=== PATIENT | female | born 1950 | race Caucasian/White ===

== ENCOUNTER → 2020-01-25 14:44 | Outpatient (CLI) | payer MEDICARE, BC, MEDICAID, SELFPAY ==
--- NOTE | 2020-01-25 14:50 | ECHOCS_ITS ---
Reason For Study: S/P TAVR Procedure This was a 2D Doppler, Color Flow transthoracic echocardiogram. The study was technically difficult. Contrast injection was performed. Exam performed in department. Left Ventricle Normal LV size. Left ventricular systolic function is normal. The estimated ejection fraction is 70 %. There is evidence of diastolic dysfunction. No regional wall motion abnormalities noted. Right Ventricle Normal RV size. Normal systolic function. Atria The left atrium is mildly enlarged. Normal right atrium. No doppler evidence for ASD. Mitral Valve There is moderate mitral annular calcification. Extension of the mitral annular calcification onto the base of the posterior mitral valve leaflet. The mitral papillary muscle appears thickened and/or calcified. Mild mitral valve stenosis. Trivial mitral valve insufficiency. Tricuspid Valve Normal tricuspid valve. Trivial tricuspid valve insufficiency. Right ventricular systolic pressure estimated to be 33 mmHg. Aortic Valve Mild aortic stenosis. Stable appearing bioprosthetic aortic valve apparatus. Trivial perivalvular insufficiency of the aortic valve. Pulmonic Valve The pulmonic valve is not well visualized. Trivial pulmonic valve insufficiency. Great Vessels Normal sized aortic root. Pericardium/Pleural No pericardial effusion. Medication 22 gauge I.V. with prn adaptor inserted into right arm. Diluted definity 3.0ml given slow IV push to enhance endocardial definition. MMode/2D Measurements & Calculations LVIDd: 3.7 cm IVSd: 1.3 cm LVOT diam: 2.0 cm LVIDs: 2.2 cm LVPWd: 1.1 cm RVDd: 4.0 cm FS: 41.0 % LVOT area: 3.1 cm2 Ao root diam: 3.1 cm LAV(MOD-bp): 71.3 ml LA A4 area: 22.2 cm2 LAV(MOD-bp) Indexed: 38.6 ml/m2 LAV(MOD-sp2): 76.1 ml LAV(MOD-sp4): 65.1 ml RA A4 area: 15.6 cm2 Doppler Measurements & Calculations MV E max jostin: 116.5 cm/sec Lat Peak E' Jostin: 6.2 cm/sec Med Peak E' Jostin: 4.8 cm/sec MV A max jostin: 123.3 cm/sec E/E' lat: 18.8 E/E' med: 24.4 MV E/A: 0.95 MV V2 max: 120.4 cm/sec Ao V2 max: 246.2 cm/sec LV V1 max: 120.6 cm/sec MV max P.8 mmHg Ao max P.3 mmHg LV V1 max P.8 mmHg MV V2 mean: 70.6 cm/sec Ao V2 mean: 149.8 cm/sec LV V1 mean P.2 mmHg MV mean P.3 mmHg Ao mean P.2 mmHg LV V1 mean: 84.8 cm/sec MV V2 VTI: 44.2 cm Ao V2 VTI: 51.3 cm LV V1 VTI: 27.4 cm MVA(VTI): 1.9 cm2 MICK(I,D): 1.6 cm2 MICK(V,D): 1.5 cm2 SV(LVOT): 83.9 ml PA V2 max: 131.8 cm/sec TR max jostin: 274.5 cm/sec TR max P.1 mmHg MV P1/2t-pr_phl: 90.6 msec Interpretation Summary The study was technically difficult. Contrast injection was performed. Left ventricular systolic function is normal. The estimated ejection fraction is 70 %. The left atrium is mildly enlarged. There is moderate mitral annular calcification. Extension of the mitral annular calcification onto the base of the posterior mitral valve leaflet. The mitral papillary muscle appears thickened and/or calcified. Mild mitral valve stenosis. Trivial mitral valve insufficiency. Trivial tricuspid valve insufficiency. Stable appearing bioprosthetic aortic valve apparatus. Mild aortic stenosis. Trivial perivalvular insufficiency of the aortic valve. Trivial pulmonic valve insufficiency. Right ventricular systolic pressure estimated to be 33 mmHg. There is evidence of diastolic dysfunction. Ordering Physician: BRINDA SIMPSON Referring Physician: ILYA ERWIN Performed By: Margarita Biswas, JUDITH, RVT
== END ==
PROVIDERS: PCP Family Medicine
DX: Z95.2 Presence of prosthetic heart valve (principal)
CPT/HCPCS: 93306; Q9957; A4216; C8929

== ENCOUNTER → 2020-02-03 07:11 | Outpatient (CLI) | payer MEDICARE, BC, MEDICAID, SELFPAY ==
--- NOTE | 2020-02-03 07:15 | CT_ITS ---
STUDY: CT CHEST WITHOUT CONTRAST REASON FOR EXAM: Female, 69 years old. LUNG NODULES, COPD, DB, END STAGE RENAL DZ-DIALYSIS RADIATION DOSAGE (If Supplied By Facility): CTDIvol = ( 15.19 ) mGy, DLP = ( 493.49 ) mGycm TECHNIQUE: Transaxial imaging was performed without the administration of intravenous contrast material. Multiplanar coronal and sagittal images were reformatted. Individualized dose optimization techniques were used for this CT. COMPARISON: None. FINDINGS: There is an 8.8 mm hypodense nodule in the inferior pole of the left lobe of the thyroid. This most likely represents a colloid cyst. Calcified nodules in the lateral aspect of the right breast. Mild degree of emphysematous changes. Linear density in the anterior aspect of the left lower lobe abutting the left major fissure with bronchiectasis suggestive of scarring. There is no demonstrated pleural abnormality. There are calcifications of the coronary arteries. Minimal anterior pericardial thickening. There are multiple small lymph nodes within the mediastinum, which are normal in size and morphology most compatible with reactive lymph hyperplasia. Calcified right mediastinal lymph nodes. Normal hilar regions. Normal unenhanced pulmonary arteries. There is atherosclerotic calcification of the aortic arch . There is evidence of a covered stent at the origin of the ascending thoracic aorta. There are multi-level degenerative changes of the thoracic spine. Soft tissue density within the gallbladder. Correlation with ultrasound of the gallbladder is recommended. CT/Chest without Contrast IMPRESSION: Findings suggestive of scarring in the anterior aspect of the left lower lobe with bronchiectasis. Calcified mediastinal lymph nodes. Minimal pericardial thickening. Covered stent is seen in the ascending thoracic aorta. Soft tissue density seen within the gallbladder lumen. Correlation with ultrasound is recommended. Electronically Signed: Ayo Oliver, at 14:21 EDT , Service support ,
== END ==
PROVIDERS: PCP Family Medicine; Referring Provider Family Medicine; Visit Provider Family Medicine
DX: R91.1 Solitary pulmonary nodule (principal)
CPT/HCPCS: 71250

== ENCOUNTER → 2020-02-08 10:42 | Outpatient (CLI) | payer MEDICARE, MEDICAID, SELFPAY ==
--- NOTE | 2020-02-08 10:44 | VDUE_ITS ---
Reason For Study: ESRD Right Arm Left Arm Right cephalic vein is compressible. Left cephalic vein is compressible. Right Cephalic Vein at the shoulder Left Cephalic Vein at the shoulder measures .47 x .47 cm. measures .38 x .4 cm. Right Cephalic Vein mid bicep measures .52 Left Cephalic Vein at mid bicep measures .46 x .51 cm. x .45 cm. Right Cephalic Vein above antecub Left Cephalic Vein above antecub measures .51 measures .47 x .49 cm. x .52 cm. Right Cephalic Vein below antecub Left Cephalic Vein below antecub measures .32 measures .24 x .26 cm. x .31 cm. Right Cephalic Vein in the forearm Left Cephalic Vein in the forearm measures .31 x .31 cm. measures .31 x .31 cm. Right Cephalic Vein at the wrist measures .32 Left Cephalic Vein at the wrist measures .3 x .31 cm. x .29 cm. Right basilic vein is compressible. Left basilic vein is compressible. Right Basilic Vein mid bicep measures .29 Basilic vein below antecub measures .15 x .15 x .3 cm. cm. Right Basilic Vein above antecub measures .33 Basilic vein in the forearm measures .17 x .34 cm. x .18 cm. Right Basilic Vein below antecub measures .31 Basilic vein at the wrist measures .18 x .16 x .3 cm. cm. Right Basilic Vein in the forearm Pt has graft in left upper arm. measures .29 x .32 cm. Brachial art .43 x .42 cm. Right Basilic Vein at the wrist measures .21 Brachial art 164.7 cm/s. x .22 cm. Radial art .19 x .22 cm. Brachial art .43 x .45 cm. Radial art 151.7 cm/s. Brachial art 68.6 cm/s. Radial art .19 x .22 cm. Radial art 134.4 cm/s. Interpretation Summary Patent and compressible bilateral upper extremity cephalic and basilic veins as noted. Bilateral radial and brachial arteries appear patent and of adequate caliber. Ordering Physician: Genesis Davies Performed By: Juan Sears RVT ?
== END ==
PROVIDERS: PCP Family Medicine; Referring Provider Internal Medicine Nephrology; Visit Provider Internal Medicine Nephrology
DX: N18.6 End stage renal disease (principal); Z01.818 Encounter for other preprocedural examination
CPT/HCPCS: 93970; 93990

== ENCOUNTER 2020-10-04 19:16 | Emergency (ER) | payer MEDICARE, MEDICAID, SELFPAY ==
[2020-09-07 14:08] VITALS: BMI 36.1
[2020-10-04 19:16] VITALS: BP 168/65; PULSE 74; RESP 16; TEMP 37.3; O2SAT 93; BMI 36.6
[2020-10-04] MEDS: oxyCODONE 5 MG Tablet PO ×2 (19:23→21:33)
--- NOTE | 2020-10-04 19:23 | US_ITS ---
STUDY: VENOUS DOPPLER ULTRASOUND - LEFT LOWER EXTREMITY REASON FOR EXAM: Female, 69 years old. LT LEG PAIN SINCE 10 AM TECHNIQUE: Ultrasound evaluation of the deep vein system to include herrera-scale imaging and compression was performed. Herrera-scale imaging and Doppler sonographic evaluation, including duplex spectral analysis and qualitative color flow sonography, was performed. COMPARISON: None. FINDINGS: Common Femoral Vein: Normal compression, spontaneity and augmentation. Normal color Doppler. Common Femoral Vein/Greater Saphenous Junction: Normal compression. No abnormal internal echoes. Deep Femoral Vein: Not assessed. Femoral Proximal: Normal compression. No abnormal internal echoes. Femoral Middle: Normal compression, spontaneity and augmentation. Normal color Doppler. Femoral Distal: Normal compression. No abnormal internal echoes. Popliteal Vein: Normal compression, spontaneity and augmentation. Normal color Doppler. Posterior Tibial Vein: Normal compression. No abnormal internal echoes. Peroneal Vein: Normal compression. No abnormal internal echoes. There is no demonstrated deep venous thrombosis. US/Venous Duplex Imag/Limited/Uni IMPRESSION: Normal venous Doppler ultrasound of the lower extremity. Electronically Signed: Pito Park MD at 20:08 EDT Tel , Service support ,
--- NOTE | 2020-10-04 19:23 | ED.VIS.LOWEX ---
HPI History of Present Illness Chief Complaint: Lower Extremity Injury Informant: patient Narrative Narrative: Patient presents with left lower extremity pain. Started around 10 AM this morning, about 9 hours ago. She describes pains in the front and back part of her lower leg from her knee to her ankle. She denies any falls or trauma. She tried Tylenol with some relief. She is on dialysis and received her full treatment today. She denies any history of DVT in the past. [facility] Medical History Atherosclerotic heart disease of [place] coronary artery without angina pectoris COPD (chronic obstructive pulmonary disease) ESRD (end stage renal disease) on dialysis First degree AV block Non-rheumatic mitral valve stenosis GIACOMO (obstructive sleep apnea) Paroxysmal atrial fibrillation Presence of stent in coronary artery Pulmonary hypertension Type 2 diabetes mellitus Home Medications acetaminophen 325 mg tablet 650 mg PO Q4H PRN tab 09/06/20 [History Last Taken Unknown] aspirin 81 mg tablet,delayed release 81 mg PO DAILY 09/06/20 [History Last Taken Unknown] atorvastatin 40 mg tablet 40 mg PO DAILY #1 tab 09/06/20 [Rx Last Taken Unknown] carvedilol 12.5 mg tablet 12.5 mg PO .COMPLEX #1 tab 09/06/20 [Rx Last Taken Unknown] citalopram 20 mg tablet 30 mg PO DAILY tab 09/06/20 [History Last Taken Unknown] ergocalciferol (vitamin D2) 1,250 mcg (50,000 unit) capsule 1,250 mcg PO QWEEK #1 cap 09/06/20 [Rx Last Taken Unknown] insulin NPH-regular 70-30 U-100 insulin 100 unit/mL subcutaneous pen See Rx Instructions SUBCUT DAILY 09/06/20 [History Last Taken Unknown] loperamide 2 mg tablet 2 mg PO Q6H PRN 09/06/20 [History Last Taken Unknown] sevelamer carbonate 800 mg tablet 3,200 mg PO TID tab 09/06/20 [History Last Taken Unknown] trazodone 50 mg tablet 50 mg PO QHS PRN 09/06/20 [History Last Taken Unknown] vitamin B complex and vitamin C no.20-folic acid 1 mg capsule 1 cap PO DAILY 09/06/20 [History Last Taken Unknown] lisinopril 40 mg tablet 20 mg PO .COMPLEX tab 09/07/20 [History Last Taken Unknown] Allergy/AdvReac Type Severity Reaction Status Date / Time No Known Allergies Allergy Verified 10/04/20 19:21 Family History Grandfather Myocardial infarction Grandmother Myocardial infarction Grandmother Congestive heart failure Surgical History History of transcatheter aortic valve replacement (TAVR) (~12/25/18) Presence of coronary angioplasty implant and graft (~11/17/18) Social History Smoking Status: Never smoker alcohol intake: never substance use type: does not use caffeine: No ROS ROS ED Constitutional Constitutional ED: Denies chills or fever(s) Eyes Eyes: Denies blurry vision, change in vision or diplopia ENT ENT ED: Denies ear pain, rhinorrhea or sore throat Cardiovascular Cardiovascular: Denies chest pain or palpitations Respiratory/Chest Respiratory/Chest: Denies cough, dyspnea or sputum Gastrointestinal Gastrointestinal: Denies abdominal pain, diarrhea, nausea or vomiting Genitourinary Genitourinary ED: Denies dysuria, hematuria or urinary frequency Musculoskeletal Musculoskeletal: Reports other Details: Left leg pain Integumentary Denies change in pigmentation or rash Neurologic Neurologic: Denies headache(s), numbness or weakness Psychiatric Psychiatric: Denies anxiety or depression Endocrine Endocrinology: Denies polydipsia or polyuria EXAM Physical Exam Const Vital Signs: 10/04/20 19:16 Temperature 99.1 F Temperature Source Oral Pulse Rate 74 Respiratory Rate 16 Blood Pressure 168/65 H Blood Pressure Mean 99 Pulse Ox 93 Oxygen Delivery Method Room Air Positive well nourished and well developed General Appearance ED: well developed HEENT normocephalic and atraumatic Eyes PERRL Neck full ROM and supple Extremity Extremity Narrative: Patient has tenderness of the left calf and left anterior lower leg minimally. There is no swelling. Her peripheral pulses are equal in both legs. There is no erythema. There is no knee or ankle joint discomfort. Neuro oriented x3 and CN's II-XII intact bilaterally Sensorium / Orientation: alert Motor Exam: strength 5/5 throughout Psych mental status grossly normal Skin Lesions: no lesions Rashes: no rashes MDM MDM MDM Narrative Medical decision making narrative: The patient had an ultrasound of the left lower extremity which reveals no DVT. She was given oxycodone for pain control. She has had no trauma. She has no specifically bony tenderness. Do not feel x-ray would show us anything additional. Patient will continue to take Tylenol and oxycodone at her skilled nursing. If the symptoms persist she may need repeat testing. Discharge Plan Triage Chief Complaint: Lower Extremity Injury ED Provider: Eliot Stevens Dx/Rx/DC Orders Clinical Impression: Lower extremity pain, left Instructions: ED Pain, Acute, Uncertain Cause Prescriptions: No Action lisinopril 40 mg tablet 20 mg PO .COMPLEX RF: 0 aspirin [Adult Low Dose Aspirin] 81 mg tablet,delayed release (DR/EC) 81 mg PO DAILY RF: 0 atorvastatin 40 mg tablet 40 mg PO DAILY Qty: 1 RF: 0 carvedilol 12.5 mg tablet 12.5 mg PO .COMPLEX Qty: 1 RF: 0 citalopram 20 mg tablet 30 mg PO DAILY RF: 0 ergocalciferol (vitamin D2) 1,250 mcg (50,000 unit) capsule 1,250 mcg PO QWEEK Qty: 1 RF: 0 Humulin 70/30 U-100 KwikPen 100 unit/mL (70-30) insulin pen See Rx Instructions subcut DAILY RF: 0 loperamide [Imodium A-D] 2 mg tablet 2 mg PO Q6H PRN (Reason: Diarrhea) RF: 0 sevelamer carbonate [Renvela] 800 mg tablet 3,200 mg PO TID RF: 0 trazodone 50 mg tablet 50 mg PO QHS PRN (Reason: Sleep) RF: 0 Triphrocaps 1 mg capsule 1 cap PO DAILY RF: 0 acetaminophen [Tylenol] 325 mg tablet 650 mg PO Q4H PRN (Reason: Pain) RF: 0 Primary Care Provider: Ilya Padilla Referrals: Ilya Padilla MD [Primary Care Provider] - Disposition Disposition: Home, self care
== END 2020-10-04 21:37 | disposition home or self-care (01) ==
LOC: ED 20:09
PROVIDERS: Emergency Provider Emergency Medicine; PCP Family Medicine
DX: M79.605 Pain in left leg (principal); I25.10 Atherosclerotic heart disease of native coronary artery without angina pectoris; E11.22 Type 2 diabetes mellitus with diabetic chronic kidney disease; N18.6 End stage renal disease; I48.0 Paroxysmal atrial fibrillation; Z79.4 Long term (current) use of insulin; Z79.82 Long term (current) use of aspirin; Z99.2 Dependence on renal dialysis; Z79.899 Other long term (current) drug therapy
CPT/HCPCS: 93971; 99284

== ENCOUNTER 2020-10-06 14:30 | Emergency (ER) | payer MEDICARE, BC, MEDICAID, SELFPAY ==
[2020-10-06 14:32] VITALS: BP 121/35; PULSE 67; RESP 18; TEMP 36.8; O2SAT 89; BMI 35.8
--- NOTE | 2020-10-06 14:54 | RAD_ITS ---
STUDY: X-RAY CHEST REASON FOR EXAM: Female, 69 years old. Preop TECHNIQUE: Single AP portable view of the chest. COMPARISON: None. FINDINGS: EKG electrodes are seen. The vascular stent is seen in the left mid upper extremity. The lungs are clear and expanded. There is no demonstrated pleural abnormality. There is moderate cardiac enlargement. Normal mediastinum and anastasia. Normal visualized pulmonary arteries. There is atherosclerotic calcification of the aortic arch with tortuosity. There are diffuse degenerative changes of the visualized thoracic spine. Normal visualized ribs, clavicles, and shoulders. There is no demonstrated abnormality of the visualized soft tissue structures of the upper abdomen. RAD/Chest 1 View (Portable) IMPRESSION: Cardiomegaly. Electronically Signed: Ayo Oliver MD at 15:41 EDT , Service support ,
--- NOTE | 2020-10-06 14:55 | EKG12_ITS ---
Test Reason : TRANSFER Blood Pressure : / mmHG Vent. Rate : 074 BPM Atrial Rate : 074 BPM P-R Int : 250 ms QRS Dur : 134 ms QT Int : 470 ms P-R-T Axes : 025 228 011 degrees QTc Int : 521 ms Sinus rhythm with 1st degree A-V block with occasional Premature ventricular complexes Right bundle branch block Abnormal ECG Confirmed by VINAYAK BURGER, ALMA ([id number]), editorial director REY MCLAUGHLIN ([id number]) on 10/09/2020 11:14:16 A M Referred By: IWONA Confirmed By:RITA LICEA MD
--- NOTE | 2020-10-06 14:57 | EDS_ITS ---
HPI History of Present Illness Chief Complaint: Abn Labs Informant: patient Onset/Context/Timing Onset: Days (24 to 36 hours ago) Context: Sudden Onset Timing: Continuous Quality: Tingling in the toes and left foot and pain left foot Location: Toes and foot, left Current Severity: Mild Maximum Severity: Moderate Worsened by: Walking Relieved by: Nothing Associated Symptoms Associated Symptoms: Decreased sensation, cold left foot, and pain with ambulation Narrative Narrative: Patient was seen 2 days ago and had documented blood flow. Venous duplex was negative. Patient symptoms started apparently after she was seen. She denies history of atrial fibrillation. Review of prior records indicates she has history of paroxysmal atrial fibrillation. She was at dialysis and dialysis was discontinued after 1.5 hours because they received a call that arterial study revealed no flow distal to the popliteal. Patient denies fever, chills night sweats. She denies headache, visual, ocular auditory symptoms. Patient denies chest pain or shortness of breath. She denies abdominal pain, nausea, vomiting or diarrhea. Prior similar symptoms: No Recent Illness/Hospitalization: Yes [facility] Medical History Atherosclerotic heart disease of [place] coronary artery without angina pectoris COPD (chronic obstructive pulmonary disease) ESRD (end stage renal disease) on dialysis First degree AV block Non-rheumatic mitral valve stenosis GIACOMO (obstructive sleep apnea) Paroxysmal atrial fibrillation Presence of stent in coronary artery Pulmonary hypertension Type 2 diabetes mellitus Home Medications acetaminophen 325 mg tablet 650 mg PO Q4H PRN tab 09/06/20 [History Last Taken Unknown] aspirin 81 mg tablet,delayed release 81 mg PO DAILY 09/06/20 [History Last Taken Unknown] atorvastatin 40 mg tablet 40 mg PO DAILY #1 tab 09/06/20 [Rx Last Taken Unknown] carvedilol 12.5 mg tablet 12.5 mg PO .COMPLEX #1 tab 09/06/20 [Rx Last Taken Unknown] citalopram 20 mg tablet 30 mg PO DAILY tab 09/06/20 [History Last Taken Unknown] ergocalciferol (vitamin D2) 1,250 mcg (50,000 unit) capsule 1,250 mcg PO QWEEK #1 cap 09/06/20 [Rx Last Taken Unknown] insulin NPH-regular 70-30 U-100 insulin 100 unit/mL subcutaneous pen See Rx Instructions SUBCUT DAILY 09/06/20 [History Last Taken Unknown] loperamide 2 mg tablet 2 mg PO Q6H PRN 09/06/20 [History Last Taken Unknown] sevelamer carbonate 800 mg tablet 3,200 mg PO TID tab 09/06/20 [History Last Taken Unknown] trazodone 50 mg tablet 50 mg PO QHS PRN 09/06/20 [History Last Taken Unknown] vitamin B complex and vitamin C no.20-folic acid 1 mg capsule 1 cap PO DAILY 09/06/20 [History Last Taken Unknown] lisinopril 40 mg tablet 20 mg PO .COMPLEX tab 09/07/20 [History Last Taken Unknown] Allergy/AdvReac Type Severity Reaction Status Date / Time No Known Allergies Allergy Verified 10/06/20 14:34 Family History Grandfather Myocardial infarction Grandmother Myocardial infarction Grandmother Congestive heart failure Surgical History History of transcatheter aortic valve replacement (TAVR) (~12/25/18) Presence of coronary angioplasty implant and graft (~11/17/18) Social History (Updated 10/06/20 @ 15:[address] Keon Ovalles MD) household members: none Smoking Status: Never smoker alcohol intake: never substance use type: does not use caffeine: No ROS ROS ED Constitutional Constitutional ED: Denies chills, fever(s), subjective or sweats Eyes Eyes: Denies blurry vision, change in vision or diplopia ENT ENT ED: Denies ear pain, rhinorrhea or sore throat Cardiovascular Cardiovascular: Denies chest pain, palpitations or racing heartbeat Respiratory/Chest Respiratory/Chest: Denies cough, dyspnea or dyspnea on exertion Gastrointestinal Gastrointestinal: Denies abdominal pain, diarrhea, nausea or vomiting Musculoskeletal Musculoskeletal: Reports other Details: Left foot pain and tingling ; Denies arthralgias, back pain, myalgias or neck pain Integumentary Denies rash Neurologic Neurologic: Reports paresthesias; Denies headache(s) or weakness Allergic/Immunologic Allergic/Immunologic ED: Denies mouth swelling, tongue swelling or urticaria EXAM Physical Exam Const Vital Signs: 10/06/20 14:32 10/06/20 15:02 10/06/20 15:13 Temperature 98.3 F Temperature Source Temporal Pulse Rate 67 69 Respiratory Rate 18 16 Respiratory Effort Normal Non-Labored Respiratory Pattern Normal Blood Pressure 121/35 H 174/60 H Blood Pressure Mean 63 98 Pulse Ox 89 94 Oxygen Delivery Method Room Air Room Air Positive well nourished and well developed General Appearance ED: well developed and NAD HEENT Negative for trauma or tenderness Eyes PERRL and EOMs intact bilaterally General Eye ED: Yes pale conjunctiva; Negative for scleral icterus Neck no lymphadenopathy and supple Resp normal respiratory effort and clear to auscultation bilaterally Cardio regular rate, regular rhythm, S1 normal heart sound, S2 normal heart sound and no murmurs GI normal to inspection, nondistended, normoactive bowel sounds and non-tender Palpation: soft Back/Spine no CVA tenderness Cervical Spine: Negative for cervical spine tenderness Thoracic Spine / Upper Back: Negative for thoracic spinal tenderness or paraspinal muscle tenderness Extremity Extremity Narrative: Patient has a cold pale left foot. There is no palpable femoral, popliteal, DP or PT pulse. There is biphasic flow at the femoral and popliteal. There is no flow at the DP or PT. Neuro oriented x3 and CN's II-XII intact bilaterally Sensorium / Orientation: alert Sensory Exam: sensory level loss detected Motor Exam: Negative for strength 5/5 throughout Psych mental status grossly normal Skin no rashes or lesions noted and no wounds MDM MDM MDM Narrative Medical decision making narrative: Patient presents because of abnormal labs. When asked she states she had a Doppler 2 days ago which was reportedly negative. Patient reports numbness tingling of her toes and dorsal surface of her left foot that started approximately 24 to 36 hours ago. She reports increased pain with walking. The pain in the foot started 24 hours ago. Patient has decreased movement of her toes. There is altered sensation. And there is pallor to all the toes. There appears to be pallor distal portion of the left foot as well. Appropriate labs were obtained. Patient will be anticoagulated. Patient's daughter is a nurse and requested [facility]. Spoke with the nurse at [facility]/transfer line. She will discuss case with vascular surgeon. Otherwise will ask patient and daughter what their second choice would be. Covid test was ordered. Patient was made NPO. Lab Data Attestation: I reviewed the patient's lab results. Labs: Laboratory Results - last 24 hr 10/06/20 10/06/20 15:05 15:05 WBC 10.1 RBC 3.41 L Hgb 10.2 L Hct 32.9 L MCV 96.5 MCH 29.9 MCHC 31.0 L RDW Std Deviation 53.7 H RDW Coeff of Joan 15.1 H Plt Count 262 MPV 11.3 Immature Gran % (Auto) 0.500 Neut % (Auto) 79.3 H Lymph % (Auto) 14.6 L [place] % (Auto) 4.3 Eos % (Auto) 1.1 Baso % (Auto) 0.2 Absolute Neuts (auto) 8.0 H Absolute Lymphs (auto) 1.47 Nucleated RBC % 0 Sodium 138 Potassium 3.5 Chloride 95 L Carbon Dioxide 35.0 H Anion Gap 8 BUN 45 H Creatinine 5.99 H Estim Creat Clear Calc 6.81 Est GFR (MDRD) Af Amer 9 L Est GFR (MDRD) Non-Af 7 L BUN/Creatinine Ratio 7.5 L Glucose 141 H Calcium 9.6 CBC reveals mild anemia with normal MCV. Electrolyte panel is remarkable for creatinine of 5.99 and BUN of 45. No other labs available for review at the time of transfer Radiography Chest X-Ray - ED: 1 View, Read by ED Physician, Lungs, Mediastinum, Bony Structures, No Acute Disease, Chronic Changes, Cardiomegaly and - (Single view portable x-ray of the chest was interpreted by me at 1542.) Diagnostic Testing: Radiology Impression Chest X-Ray 10/06/20 14:54 IMPRESSION: Cardiomegaly. Electronically Signed: Ayo Oliver MD at 15:41 EDT , Service support , EKG Initial EKG: Attestation: I personally reviewed and interpreted this EKG as follows: Interpretation: Sinus Rhythm Comments: Ventricular rate is 74. There is evidence of first-degree AV block with a CO interval of 250 ms. There is evidence of premature ventricular complexes. QRS duration is prolonged at 134 ms and consistent with a right bundle branch block. QT intervals 470 ms. [place] to the right. Critical Care Time Critical Care Time: Yes Critical care time (excluding procedures): 30-74 minutes (37 minutes), Including time spent: (History, physical, bedside care, initiation of therapy,), Discussing w/Patient &/or Family/[employer]ing [employer], Discussing w/Consultants and Arranging Admission or Transfer Discharge Plan Triage Chief Complaint: Abn Labs ED Provider: Keon Ovalles Dx/Rx/DC Orders Clinical Impression: Pain of left lower extremity due to ischemia Prescriptions: No Action lisinopril 40 mg tablet 20 mg PO .COMPLEX RF: 0 aspirin [Adult Low Dose Aspirin] 81 mg tablet,delayed release (DR/EC) 81 mg PO DAILY RF: 0 atorvastatin 40 mg tablet 40 mg PO DAILY Qty: 1 RF: 0 carvedilol 12.5 mg tablet 12.5 mg PO .COMPLEX Qty: 1 RF: 0 citalopram 20 mg tablet 30 mg PO DAILY RF: 0 ergocalciferol (vitamin D2) 1,250 mcg (50,000 unit) capsule 1,250 mcg PO QWEEK Qty: 1 RF: 0 Humulin 70/30 U-100 KwikPen 100 unit/mL (70-30) insulin pen See Rx Instructions subcut DAILY RF: 0 loperamide [Imodium A-D] 2 mg tablet 2 mg PO Q6H PRN (Reason: Diarrhea) RF: 0 sevelamer carbonate [Renvela] 800 mg tablet 3,200 mg PO TID RF: 0 trazodone 50 mg tablet 50 mg PO QHS PRN (Reason: Sleep) RF: 0 Triphrocaps 1 mg capsule 1 cap PO DAILY RF: 0 acetaminophen [Tylenol] 325 mg tablet 650 mg PO Q4H PRN (Reason: Pain) RF: 0 Primary Care Provider: Ilya Padilla Referrals: Ilya Padilla MD [Primary Care Provider] - Disposition Disposition: Acute Care Hospital Discharge Location: [facility]
[2020-10-06 15:13] VITALS: BP 174/60; PULSE 69; RESP 16; O2SAT 94
--- NOTE | 2020-10-06 15:16 | NURSING ---
[facility] GEN OR ISCHEMIC LEG
[2020-10-06] MEDS: HEPARIN/D5w 25,000 UNITS 25,000 UNITS/250 ML IV.SOLN. 12 UNITS IV (15:20)
[2020-10-06] MEDS: Heparin Injection (Vial) 5,000 UNIT/ML VIAL 6000 UNIT IV (15:20)
--- NOTE | 2020-10-06 15:22 | NURSING ---
ETA IS 90 TO 120
--- NOTE | 2020-10-06 15:24 | ED.RN ---
[facility] CONTACTED
[2020-10-06 15:37] LABS: Anion Gap 8 (5-15); BUN 45 mg/dL (7-18); BUN/Creat Ratio 7.5 RATIO (10-20); Calcium,Total 9.6 mg/dL (8.5-10.1); Chloride 95 mmol/L (98-107); Creatinine, Serum 5.99 mg/dL (0.55-1.02); EST Glomerular Filtration Rate 7 mL/min (>60); Est Glom Filt Rate - Afr Amer 9 mL/min (>60); Estimated Creatinine Clearance 6.81 ml/min; Glucose 141 mg/dL (74-106); Potassium 3.5 mmol/L (3.5-5.1); Sodium Level 138 mmol/L (136-145)
[2020-10-06 15:41] LABS: Absolute Lymphocyte Count 1.47 X10^3/uL (0.83-4.51); Basophil# 0.02 X10^3/uL; Basophil% 0.2 % (0-1); Eosinophil# 0.11 X10^3/uL; Eosinophils% 1.1 % (0-5); Hematocrit 32.9 % (37-47); Hemoglobin 10.2 g/dL (12.0-15.0); Lymphocyte # 1.47 X10^3/ul (0.83-4.51); Lymphocyte % 14.6 % (19-41); Mean Corpuscular Hgb 29.9 pg (27.0-32.0); Mean Corpuscular Volume 96.5 fL (81-99); Mean Platelet Vol. 11.3 fl (6.2-12.0); Monocyte# 0.43 X10^3/uL; Monocyte% 4.3 % (0-10); NRBC Flagged by Analyzer 0 % (0-5); Neutrophil # 8.01 X10^3/uL (2.7-7.7); Neutrophil % 79.3 % (47-70); Platelet Count 262 K/mm3 (150-450); RBC Distribution Width CV 15.1 % (11.6-14.6); RBC Distribution Width SD 53.7 fl (35.1-43.9); Red Blood Count 3.41 M/mm3 (4.2-5.4); White Blood Count 10.1 K/mm3 (4.4-11.0)
[2020-10-06 15:50] VITALS: BP 166/66; PULSE 78; RESP 18; O2SAT 94
[2020-10-06 15:56] LABS: Partial Thromboplast Time 46.2 Seconds (24.1-36.2)
--- NOTE | 2020-10-06 15:58 | ED.RN ---
Diego Sykes called and updated on patients condition, transfer to [facility] ED and time of departure from [facility].
--- NOTE | 2020-10-06 16:00 | EX.ED.DYSGE1 ---
HPI History of Present Illness Chief Complaint: Abn Labs [facility] Medical History Atherosclerotic heart disease of [place] coronary artery without angina pectoris COPD (chronic obstructive pulmonary disease) ESRD (end stage renal disease) on dialysis First degree AV block Non-rheumatic mitral valve stenosis GIACOMO (obstructive sleep apnea) Paroxysmal atrial fibrillation Presence of stent in coronary artery Pulmonary hypertension Type 2 diabetes mellitus Home Medications acetaminophen 325 mg tablet 650 mg PO Q4H PRN tab 09/06/20 [History Last Taken Unknown] aspirin 81 mg tablet,delayed release 81 mg PO DAILY 09/06/20 [History Last Taken Unknown] atorvastatin 40 mg tablet 40 mg PO DAILY #1 tab 09/06/20 [Rx Last Taken Unknown] carvedilol 12.5 mg tablet 12.5 mg PO .COMPLEX #1 tab 09/06/20 [Rx Last Taken Unknown] citalopram 20 mg tablet 30 mg PO DAILY tab 09/06/20 [History Last Taken Unknown] ergocalciferol (vitamin D2) 1,250 mcg (50,000 unit) capsule 1,250 mcg PO QWEEK #1 cap 09/06/20 [Rx Last Taken Unknown] insulin NPH-regular 70-30 U-100 insulin 100 unit/mL subcutaneous pen See Rx Instructions SUBCUT DAILY 09/06/20 [History Last Taken Unknown] loperamide 2 mg tablet 2 mg PO Q6H PRN 09/06/20 [History Last Taken Unknown] sevelamer carbonate 800 mg tablet 3,200 mg PO TID tab 09/06/20 [History Last Taken Unknown] trazodone 50 mg tablet 50 mg PO QHS PRN 09/06/20 [History Last Taken Unknown] vitamin B complex and vitamin C no.20-folic acid 1 mg capsule 1 cap PO DAILY 09/06/20 [History Last Taken Unknown] lisinopril 40 mg tablet 20 mg PO .COMPLEX tab 09/07/20 [History Last Taken Unknown] Allergy/AdvReac Type Severity Reaction Status Date / Time No Known Allergies Allergy Verified 10/06/20 14:34 Family History Grandfather Myocardial infarction Grandmother Myocardial infarction Grandmother Congestive heart failure Surgical History History of transcatheter aortic valve replacement (TAVR) (~12/25/18) Presence of coronary angioplasty implant and graft (~11/17/18) Social History (Updated 10/06/20 @ 15:[address] Keon Ovalles MD) household members: none Smoking Status: Never smoker alcohol intake: never substance use type: does not use caffeine: No EXAM Physical Exam Const Vital Signs: 10/06/20 14:32 10/06/20 15:02 10/06/20 15:13 Temperature 98.3 F Temperature Source Temporal Pulse Rate 67 69 Respiratory Rate 18 16 Respiratory Effort Normal Non-Labored Respiratory Pattern Normal Blood Pressure 121/35 H 174/60 H Blood Pressure Mean 63 98 Pulse Ox 89 94 Oxygen Delivery Method Room Air Room Air 10/06/20 15:50 Temperature Temperature Source Pulse Rate 78 Respiratory Rate 18 Respiratory Effort Respiratory Pattern Blood Pressure 166/66 H Blood Pressure Mean 99 Pulse Ox 94 Oxygen Delivery Method MDM MDM Lab Data Labs: Laboratory Results - last 24 hr 10/06/20 10/06/20 10/06/20 15:05 15:05 15:05 WBC 10.1 RBC 3.41 L Hgb 10.2 L Hct 32.9 L MCV 96.5 MCH 29.9 MCHC 31.0 L RDW Std Deviation 53.7 H RDW Coeff of Joan 15.1 H Plt Count 262 MPV 11.3 Immature Gran % (Auto) 0.500 Neut % (Auto) 79.3 H Lymph % (Auto) 14.6 L [place] % (Auto) 4.3 Eos % (Auto) 1.1 Baso % (Auto) 0.2 Absolute Neuts (auto) 8.0 H Absolute Lymphs (auto) 1.47 Nucleated RBC % 0 APTT 46.2 H Sodium 138 Potassium 3.5 Chloride 95 L Carbon Dioxide 35.0 H Anion Gap 8 BUN 45 H Creatinine 5.99 H Estim Creat Clear Calc 6.81 Est GFR (MDRD) Af Amer 9 L Est GFR (MDRD) Non-Af 7 L BUN/Creatinine Ratio 7.5 L Glucose 141 H Calcium 9.6 Radiography Chest X-Ray - ED: 2 View, Mediastinum, Bony Structures, No Acute Disease, Chronic Changes and - (Borderline cardiomegaly. Discoid atelectasis left lower lobe. No evidence of pneumothorax or hemothorax. X-ray interpreted by me at 1600) Diagnostic Testing: Radiology Impression Chest X-Ray 10/06/20 14:54 IMPRESSION: Cardiomegaly. Electronically Signed: Ayo Oliver MD at 15:41 EDT , Service support , Three-view C-spine reveals degenerative changes with no evidence of fracture, subluxation or dislocation. There is no prevertebral soft tissue swelling noted either. 2 view x-ray of the dorsal spine interpreted by me reveals degenerative changes no evidence of compression fracture, subluxation or dislocation. Discharge Plan Triage Chief Complaint: Abn Labs ED Provider: Keon Ovalles Dx/Rx/DC Orders Clinical Impression: Pain of left lower extremity due to ischemia Prescriptions: No Action lisinopril 40 mg tablet 20 mg PO .COMPLEX RF: 0 aspirin [Adult Low Dose Aspirin] 81 mg tablet,delayed release (DR/EC) 81 mg PO DAILY RF: 0 atorvastatin 40 mg tablet 40 mg PO DAILY Qty: 1 RF: 0 carvedilol 12.5 mg tablet 12.5 mg PO .COMPLEX Qty: 1 RF: 0 citalopram 20 mg tablet 30 mg PO DAILY RF: 0 ergocalciferol (vitamin D2) 1,250 mcg (50,000 unit) capsule 1,250 mcg PO QWEEK Qty: 1 RF: 0 Humulin 70/30 U-100 KwikPen 100 unit/mL (70-30) insulin pen See Rx Instructions subcut DAILY RF: 0 loperamide [Imodium A-D] 2 mg tablet 2 mg PO Q6H PRN (Reason: Diarrhea) RF: 0 sevelamer carbonate [Renvela] 800 mg tablet 3,200 mg PO TID RF: 0 trazodone 50 mg tablet 50 mg PO QHS PRN (Reason: Sleep) RF: 0 Triphrocaps 1 mg capsule 1 cap PO DAILY RF: 0 acetaminophen [Tylenol] 325 mg tablet 650 mg PO Q4H PRN (Reason: Pain) RF: 0 Primary Care Provider: Ilya Padilla Referrals: Ilya Padilla MD [Primary Care Provider] - Disposition Disposition: Acute Care Hospital Discharge Location: [facility] Discharge Date/Time: 10/06/20 16:00
== END 2020-10-06 16:00 | disposition short-term general hospital (02) ==
PROVIDERS: Emergency Provider Emergency Medicine; PCP Family Medicine
DX: M79.605 Pain in left leg (principal); I25.10 Atherosclerotic heart disease of native coronary artery without angina pectoris; N18.6 End stage renal disease; Z99.2 Dependence on renal dialysis
CPT/HCPCS: 71045; 80048; 85025; 85730; 87426; 93005; 99285; A4216; J2405

== ENCOUNTER → 2021-02-20 12:45 | Outpatient (CLI) | payer MEDICARE, MEDICAID, SELFPAY ==
--- NOTE | 2021-02-20 12:51 | ECHOD_ITS ---
Reason For Study: VALVE REPL Procedure This was a 2D Doppler, Color Flow transthoracic echocardiogram. The study was technically difficult. Exam performed in department. Left Ventricle Normal LV size. Mild concentric left ventricular hypertrophy. Left ventricular systolic function is normal. The estimated ejection fraction is 65 %. There is evidence of diastolic dysfunction. No regional wall motion abnormalities noted. Right Ventricle Normal RV size. Normal systolic function. Atria The left atrium is moderately enlarged. Normal right atrium. No doppler evidence for ASD. Mitral Valve There is moderate mitral annular calcification. Extension of the mitral annular calcification onto the base of the posterior mitral valve leaflet. Anterior leaflet diffuse mitral valve thickening. The mitral valve chordae are thickened and/or calcified. The mitral papillary muscle appears thickened and/or calcified. Mild mitral valve stenosis. Mild (1+) mitral valve insufficiency. Tricuspid Valve Normal tricuspid valve. Mild tricuspid valve insufficiency. Unable to estimate RV systolic pressure/pulmonary artery pressure due to technically difficult study. Aortic Valve Mild aortic stenosis. Stable appearing bioprosthetic aortic valve apparatus. Trivial perivalvular insufficiency of the aortic valve. Pulmonic Valve The pulmonic valve is not well visualized. Trivial pulmonic valve insufficiency. Great Vessels Normal sized aortic root. Pericardium/Pleural No pericardial effusion. MMode/2D Measurements & Calculations LVIDd: 4.3 cm IVSd: 1.5 cm LVOT diam: 2.0 cm LVIDs: 2.6 cm LVPWd: 1.3 cm LVOT area: 3.1 cm2 RVDd: 4.0 cm FS: 39.9 % Ao root diam: 3.1 cm LAV(MOD-bp): 102.4 ml LVAd ap4: 32.7 cm2 LAV(MOD-bp) Indexed: 55.4 ml/m2 LVLd ap4: 8.3 cm LAV(MOD-sp2): 107.2 ml EDV(MOD-sp4): 106.3 ml LAV(MOD-sp4): 98.8 ml EDV(sp4-el): 109.6 ml LVAs ap4: 14.5 cm2 LVLs ap4: 6.9 cm ESV(MOD-sp4): 26.0 ml ESV(sp4-el): 25.9 ml EF(MOD-sp4): 75.6 % EF(sp4-el): 76.4 % SV(MOD-sp4): 80.3 ml SV(sp4-el): 83.7 ml LA A4 area: 28.1 cm2 LA dimension(2D): 5.2 cm RA A4 area: 15.3 cm2 Doppler Measurements & Calculations MV E max jostin: 114.1 cm/sec Lat Peak E' Jostin: 6.9 cm/sec Med Peak E' Jostin: 4.0 cm/sec MV A max jostin: 124.3 cm/sec E/E' lat: 16.5 E/E' med: 28.5 MV E/A: 0.92 MV V2 max: 139.1 cm/sec Ao V2 max: 230.9 cm/sec LV V1 max: 115.1 cm/sec MV max P.7 mmHg Ao max P.4 mmHg LV V1 max P.3 mmHg MV V2 mean: 87.6 cm/sec Ao V2 mean: 185.3 cm/sec LV V1 mean P.4 mmHg MV mean P.4 mmHg Ao mean P.0 mmHg LV V1 mean: 89.9 cm/sec MV V2 VTI: 58.2 cm Ao V2 VTI: 66.1 cm LV V1 VTI: 33.6 cm MVA(VTI): 1.8 cm2 MICK(I,D): 1.6 cm2 MICK(V,D): 1.5 cm2 SV(LVOT): 103.0 ml MV P1/2t-pr_phl: 136.1 msec ECHO/Echo Complete Interpretation Summary The study was technically difficult. Left ventricular systolic function is normal. The estimated ejection fraction is 65 %. Mild concentric left ventricular hypertrophy. The left atrium is moderately enlarged. There is moderate mitral annular calcification. Extension of the mitral annular calcification onto the base of the posterior mi tral valve leaflet. Anterior leaflet diffuse mitral valve thickening. The mitral valve chordae are thickened and/or calcified. The mitral papillary muscle appears thickened and/or calcified. Mild mitral valve stenosis. Mild (1+) mitral valve insufficiency. Mild tricuspid valve insufficiency. Stable appearing bioprosthetic aortic valve apparatus. Mild aortic stenosis. Trivial perivalvular insufficiency of the aortic valve. Trivial pulmonic valve insufficiency. Unable to estimate RV systolic pressure/pulmonary artery pressure due to techni dago difficult study. There is evidence of diastolic dysfunction. Ordering Physician: Ilya Santana Referring Physician: ILYA ERWIN Performed By: Margarita Biswas, RDCS, RVT
== END ==
PROVIDERS: PCP Family Medicine; Referring Provider Internal Medicine Cardiovascular Disease; Visit Provider Internal Medicine Cardiovascular Disease
DX: I51.7 Cardiomegaly (principal); Z95.2 Presence of prosthetic heart valve
CPT/HCPCS: 93306

== ENCOUNTER → 2021-07-23 | Emergency (ER) | payer MEDICARE, MEDICAID, SELFPAY ==
[2021-07-23] VITALS (23 sets, daily range): BP systolic 58–92; BP diastolic 20–64; PULSE 52–92; RESP 16–22; TEMP 35.6–37.1; O2SAT 95–100; BMI 40.4
--- NOTE | 2021-07-23 09:09 | EKG12_ITS ---
Test Reason : Blood Pressure : / mmHG Vent. Rate : 058 BPM Atrial Rate : 058 BPM P-R Int : 242 ms QRS Dur : 156 ms QT Int : 490 ms P-R-T Axes : 089 148 072 degrees QTc Int : 481 ms Sinus bradycardia with 1st degree A-V block Right bundle branch block Abnormal ECG Confirmed by LAMIN BURGER, COMFORT ([id number]), copy editor MAG BRUNO ([id number]) on 07/25/2021 11:38:03 AM Referred By: CRUZ Confirmed By:COMFORT KIMBLE MD
[2021-07-23 09:48] LABS: Absolute Neutrophil Count 8.8 X10^3/uL (2.0-7.7); Basophil# 0.03 X10^3/uL; Basophil% 0.3 % (0-1); Eosinophil# 0.01 X10^3/uL; Eosinophils% 0.1 % (0-5); Hematocrit 31.5 % (37-47); Hemoglobin 9.6 g/dL (12.0-15.0); Lymphocyte % 11.3 % (19-41); Mean Corp Hgb Conc 30.5 g/dL (32-36); Mean Corpuscular Hgb 30.7 pg (27.0-32.0); Mean Corpuscular Volume 100.6 fL (81-99); Mean Platelet Vol. 11.3 fl (6.2-12.0); Monocyte# 0.49 X10^3/uL; Monocyte% 4.6 % (0-10); NRBC Flagged by Analyzer 0.3 % (0-5); Neutrophil # 8.79 X10^3/uL (2.7-7.7); Neutrophil % 82.7 % (47-70); Platelet Count 282 K/mm3 (150-450); RBC Distribution Width CV 17.7 % (11.6-14.6); RBC Distribution Width SD 63.3 fl (35.1-43.9); Red Blood Count 3.13 M/mm3 (4.2-5.4); White Blood Count 10.6 K/mm3 (4.4-11.0)
[2021-07-23 10:18] LABS: Anion Gap 18 (5-15); BUN 76 mg/dL (7-18); Calcium,Total 9.7 mg/dL (8.5-10.1); Chloride 93 mmol/L (98-107); Creatinine, Serum 8.42 mg/dL (0.55-1.02); EST Glomerular Filtration Rate 5 mL/min (>60); Est Glom Filt Rate - Afr Amer 6 mL/min (>60); Estimated Creatinine Clearance 4.56 ml/min; Glucose 191 mg/dL (74-106); Sodium Level 134 mmol/L (136-145); Troponin-I HS (w/2H Reflex) 306 pg/mL (3.0-54.0)
--- NOTE | 2021-07-23 10:18 | RAD_ITS ---
STUDY: X-RAY CHEST REASON FOR EXAM: Female, 70 years old. History of fall. Chest pain. TECHNIQUE: Single AP portable view of the chest. COMPARISON: None. FINDINGS: EKG electrodes are seen. Patchy bibasilar infiltrates more prominent on the right side. Blunting of the costophrenic angles. There is moderate cardiac enlargement. Prosthetic aortic valve. Calcified right hilar lymph nodes. Normal visualized pulmonary arteries. Normal visualized aortic arch and descending thoracic aorta. There are diffuse degenerative changes of the visualized thoracic spine. Normal visualized ribs, clavicles, and shoulders. Vascular stent seen in the left axillary region. There is no demonstrated abnormality of the visualized soft tissue structures of the upper abdomen. RAD/Chest 1 View (Portable) IMPRESSION: Increased markings at the lung bases worse on the right side suggestive of bibasilar atelectasis. Electronically Signed: Ayo Oliver MD at 11:10 EDT ,
--- NOTE | 2021-07-23 10:33 | CT_ITS ---
STUDY: CT CHEST, ABDOMEN T PELVIS WITHOUT CONTRAST REASON FOR EXAM: Female, 70 years old. History of falls. RADIATION DOSAGE (If Supplied By Facility): CTDIvol = ( 20.64 ) mGy, DLP = ( 1748.80 ) mGycm TECHNIQUE: Transaxial imaging was performed without the administration of intravenous contrast material. Individualized dose optimization techniques were used for this CT. COMPARISON: No relevant priors. FINDINGS: CHEST 1 cm cyst in the lower pole of the left lobe of the thyroid. Small right pleural effusion with right basilar atelectasis and/or infiltrate. Patchy infiltrate in the left lower lobe as well as in the right middle lobe. Thickening of the left major fissure. There is no demonstrated pleural abnormality. There are calcifications of the coronary arteries. Prosthetic aortic valve. There are multiple small lymph nodes within the mediastinum, which are normal in size and morphology most compatible with reactive lymph hyperplasia. Calcified subcarinal lymph nodes as well as left hilar lymph nodes. Normal hilar regions. Normal unenhanced pulmonary arteries. There is atherosclerotic calcification of the aortic arch with tortuosity and elongation of the aortic arch and descending thoracic aorta. There are multi-level degenerative changes of the thoracic spine. Increased kyphosis. ABDOMEN Normal liver. There are multiple gallstones gallstones. Normal spleen. Normal pancreas. Normal bilateral adrenal glands. Normal right kidney. Normal left kidney. Normal visualized stomach. Normal small intestine. Normal colon. The appendix is visualized and appears normal. There is diffuse atherosclerotic calcification of the abdominal aorta and its major visceral branches, without a demonstrated aneurysm. Normal inferior vena cava. Normal retroperitoneum. Normal abdominal wall. There are mild degenerative changes of the visualized lumbar spine. PELVIS Normal urinary bladder. Enlarged calcified fibroid uterus. Normal visualized small intestine. Normal visualized colon. There is no pelvic fluid. There is no pelvic lymphadenopathy or mass lesion. There is diffuse atherosclerotic calcification of the pelvic arteries. CT/CT Chest, Abd, Pelvis WO Cont IMPRESSION: Multiple small gallstones. Small right pleural effusion with bibasilar atelectasis worse on the right side. Thickening of the left major fissure. Electronically Signed: Ayo Oliver MD at 12:39 EDT ,
[2021-07-23] MEDS: Albuterol 2.5 MG/3 ML VIAL.NEB. 5 MG INHALATION (10:38)
[2021-07-23] MEDS: Dextrose 10%-Water 250 ML 999 ML IV (11:18)
[2021-07-23] MEDS: Insulin Lispro 10 UNIT in Syringe 0 ML 6 UNIT IV (11:19)
[2021-07-23] MEDS: Calcium Gluconate IV 3 GM in Syringe 1 EACH IV (11:19)
--- NOTE | 2021-07-23 11:21 | ED.VIS.FALL ---
HPI HPI - Fall History of Present Illness Chief Complaint: Fall Narrative Narrative: 68-year-old female presenting after a fall this morning. She states she felt generally weak when she stood up. She fell and complains of intermittent pain to the middle of her back. She denies any numbness and tingling. She denies saddle paresthesia. It was reported she complained of chest pain but she is not saying that it hurts here. She denies head injury. Prior to this she states she was otherwise healthy. She denies any black or bloody stools. She is anticoagulated on Eliquis. Patient is end-stage renal disease on dialysis Friday, Friday, Friday. She did not make her appointment today. She states she has not missed any. She has an old dialysis fistula on the left upper extremity which does not work. Her new fistula has been working on the right. [facility] Medical History Atherosclerotic heart disease of [place] coronary artery without angina pectoris COPD (chronic obstructive pulmonary disease) ESRD (end stage renal disease) on dialysis First degree AV block Non-rheumatic mitral valve stenosis GIACOMO (obstructive sleep apnea) Paroxysmal atrial fibrillation Presence of stent in coronary artery Pulmonary hypertension Pulmonary nodules Type 2 diabetes mellitus Home Medications acetaminophen 325 mg tablet 650 mg PO Q4H PRN tab 09/06/20 [History Last Taken Unknown] aspirin 81 mg tablet,delayed release 81 mg PO DAILY 09/06/20 [History Last Taken Unknown] atorvastatin 40 mg tablet 40 mg PO DAILY #1 tab 09/06/20 [Rx Last Taken Unknown] carvedilol 12.5 mg tablet 12.5 mg PO .COMPLEX #1 tab 09/06/20 [Rx Last Taken Unknown] citalopram 20 mg tablet 30 mg PO DAILY tab 09/06/20 [History Last Taken Unknown] ergocalciferol (vitamin D2) 1,250 mcg (50,000 unit) capsule 1,250 mcg PO QWEEK #1 cap 09/06/20 [Rx Last Taken Unknown] loperamide 2 mg tablet 2 mg PO Q6H PRN 09/06/20 [History Last Taken Unknown] sevelamer carbonate 800 mg tablet 3,200 mg PO TID tab 09/06/20 [History Last Taken Unknown] trazodone 50 mg tablet 50 mg PO QHS PRN 09/06/20 [History Last Taken Unknown] vitamin B complex and vitamin C no.20-folic acid 1 mg capsule 1 cap PO DAILY 09/06/20 [History Last Taken Unknown] lisinopril 40 mg tablet 20 mg PO .COMPLEX tab 09/07/20 [History Last Taken Unknown] apixaban 5 mg tablet 5 mg PO BID #1 tab 03/29/21 [Rx Last Taken Unknown] Allergy/AdvReac Type Severity Reaction Status Date / Time No Known Allergies Allergy Verified 07/23/21 08:46 Family History Grandfather Myocardial infarction Grandmother Myocardial infarction Grandmother Congestive heart failure Surgical History History of femoropopliteal bypass (~10/10/20) History of transcatheter aortic valve replacement (TAVR) (~12/25/18) Presence of coronary angioplasty implant and graft (~11/17/18) Social History household members: none Smoking Status: Never smoker alcohol intake: never substance use type: does not use caffeine: No ROS ROS ED Constitutional Constitutional ED: Denies chills or fever(s) Eyes Eyes: Denies blurry vision or change in vision ENT ENT ED: Denies rhinorrhea or sore throat Cardiovascular Cardiovascular: Denies chest pain or palpitations Respiratory/Chest Respiratory/Chest: Denies cough or dyspnea Gastrointestinal Gastrointestinal: Reports nausea; Denies diarrhea or vomiting Genitourinary Genitourinary ED: Denies dysuria Musculoskeletal Musculoskeletal: Reports back pain; Denies myalgias Integumentary Denies rash Neurologic Neurologic: Denies headache(s) Psychiatric Psychiatric: Denies anxiety or depression EXAM Physical Exam Const Vital Signs: 07/23/21 08:38 07/23/21 08:45 07/23/21 08:46 Temperature 96.1 F L 98 F 97.9 F Temperature Source Temporal Temporal Pulse Rate 65 92 Respiratory Rate 18 18 Respiratory Effort Short of Breath Blood Pressure 68/20 L 73/32 L Blood Pressure Mean 36 45 Blood Pressure Source Blood Pressure Position Blood Pressure Location Pulse Ox 98 Oxygen Delivery Method Nasal Cannula Nasal Cannula Oxygen Flow Rate (L/min) 4 4 07/23/21 09:45 07/23/21 09:49 07/23/21 10:38 Temperature 98 F Temperature Source Temporal Pulse Rate 61 63 Respiratory Rate 18 16 Respiratory Effort Blood Pressure 61/46 L Blood Pressure Mean 51 Blood Pressure Source Blood Pressure Position Blood Pressure Location Pulse Ox 100 100 Oxygen Delivery Method Nasal Cannula Nasal Cannula Nasal Cannula Oxygen Flow Rate (L/min) 5 4 07/23/21 11:00 07/23/21 12:05 07/23/21 12:15 Temperature 98.7 F 97.8 F Temperature Source Temporal Temporal Pulse Rate 66 67 67 Respiratory Rate 18 22 H Respiratory Effort Blood Pressure 86/55 L 78/52 L 65/33 L Blood Pressure Mean 65 60 43 Blood Pressure Source Blood Pressure Position Blood Pressure Location Pulse Ox 96 95 Oxygen Delivery Method Nasal Cannula Nasal Cannula Oxygen Flow Rate (L/min) 2 07/23/21 12:30 07/23/21 12:45 07/23/21 13:00 Temperature Temperature Source Pulse Rate 67 66 65 Respiratory Rate 18 Respiratory Effort Blood Pressure 69/37 L 69/31 L 59/29 L Blood Pressure Mean 47 43 39 Blood Pressure Source Blood Pressure Position Blood Pressure Location Pulse Ox 100 Oxygen Delivery Method Nasal Cannula Oxygen Flow Rate (L/min) 2 07/23/21 13:15 07/23/21 13:30 07/23/21 13:36 Temperature Temperature Source Pulse Rate 65 52 L Respiratory Rate 19 H Respiratory Effort Blood Pressure 73/33 L 69/58 L 69/58 L Blood Pressure Mean 46 61 61 Blood Pressure Source Blood Pressure Position Blood Pressure Location Pulse Ox 99 Oxygen Delivery Method Nasal Cannula Oxygen Flow Rate (L/min) 2 07/23/21 13:51 07/23/21 14:00 07/23/21 14:10 Temperature 98 F Temperature Source Temporal Pulse Rate 61 62 62 Respiratory Rate 18 18 18 Respiratory Effort Blood Pressure 92/64 70/41 L 70/41 L Blood Pressure Mean 73 50 50 Blood Pressure Source Monitor Blood Pressure Position Supine Blood Pressure Location Left Forearm Pulse Ox 98 97 99 Oxygen Delivery Method Nasal Cannula Nasal Cannula Nasal Cannula Oxygen Flow Rate (L/min) 2 4 07/23/21 14:15 07/23/21 14:30 07/23/21 14:45 Temperature Temperature Source Pulse Rate 62 65 66 Respiratory Rate Respiratory Effort Blood Pressure 70/45 L 76/49 L 61/36 L Blood Pressure Mean 53 58 44 Blood Pressure Source Blood Pressure Position Blood Pressure Location Pulse Ox Oxygen Delivery Method Oxygen Flow Rate (L/min) 07/23/21 15:00 Temperature Temperature Source Pulse Rate 66 Respiratory Rate 19 H Respiratory Effort Blood Pressure 63/37 L Blood Pressure Mean 45 Blood Pressure Source Blood Pressure Position Blood Pressure Location Pulse Ox 99 Oxygen Delivery Method Nasal Cannula Oxygen Flow Rate (L/min) 2 Positive obese Constitutional Narrative: Hypotensive Nutritional Appearance: obese HEENT Reports normocephalic atraumatic Eyes PERRL and EOMs intact bilaterally General Eye ED: Yes pale conjunctiva; Negative for scleral icterus Neck full ROM Chest Wall inspection of chest normal Resp normal respiratory effort and clear to auscultation bilaterally Cardio regular rate and regular rhythm GI non-tender GI Narrative: Yellow/brown stool on exam Palpation: soft Back/Spine no CVA tenderness Neuro oriented x3, CN's II-XII intact bilaterally and moves all extremities Sensorium / Orientation: alert Psych mental status grossly normal Skin Skin Narrative: Pallor Rashes: No no rashes MDM MDM MDM Narrative Medical decision making narrative: Patient significantly hypotensive on arrival and history of fall due to weakness. Was reported that she had some sort of chest pain although she denied this to me. She also denied having any back pain but then reported back pain later. I do not find anything that I can palpate on examination. I obtained blood work and gave her initial bolus of 500 cc of IV fluids. Her blood pressure initially responded. Her EKG was sinus bradycardia with a ventricular rate of 58 bpm with first-degree AV block. No ST elevation or depression. CBC showed no leukocytosis. Hemoglobin slightly lower than in September of last year at 9.6 and creatinine is more elevated. I did suspect possibility of GI bleed as she does not appear to be hemoconcentrated after missing dialysis. Hemoccult stool was positive. She was typed and screened and crossmatched for blood due to the possibility of the hypotension being due to her anemia. Apparently the blood bank stated that there was some special type and screen that need to be done which would delay blood for her. She was hyperkalemic with a potassium of 7.0. This was treated. Her troponin returned initially at 306. Her BNP was elevated at 2823. I had a discussion at the bedside that the patient would likely need a central line and her daughter started to cry and did not want this done. I discussed the case with the hospitalist who also came to the bedside and explained that the patient would need a central line in order to can continue to give her Levophed. The patient then stated that she just wanted her mom to go to [facility]. I spoke with [facility] Dr. Reddy who did accept admission but states it will be a bed with a little for 2 to 4 hours. I explained to her that her family does not want a central line and she was okay with the patient getting peripheral vasopressors for short duration even just her transfer. Levophed was started but did not apparently change her blood pressure. Her lactic acid came back at 8.5. Her LFTs are elevated. Her second high-sensitivity troponin came back to 94. Chest x-ray on my interpretation does not show any pneumonia or hieu CHF. The radiologist does agree. I did obtain a CT of the chest abdomen pelvis due to the patient's vague complaints of pain and back pain with her altered mental status. CT of the chest does show a right pleural effusion. There are multiple gallstones. There is nothing acute in the abdomen. I did have another discussion with the patient's daughter and her son who is now arrived. I counseled them that she would eventually need a central line. She would probably need arterial pressure monitoring. It is possible that she may end up needing intubation. At this point they stated that they did not want her to go through all that. The son at the bedside stated that he asked his mother what she wanted to do and she stated that she did not want to go through any of those procedures. At this point we canceled the transfer to [facility]. She was made DNR comfort care. They did request that I leave the Levophed going to keep her blood pressure up until family could be at bedside. I spoke with social work who is trying to arrange inpatient hospice for the patient. The social work supervisor also spoke with the family. Patient apparently is in shock but I did not find an infectious source. And limited on what I can do to keep her blood pressure up without central line. Family does not want her to be intubated. At this point I will have her referred for hospice. Impression: 1. Shock liver 2. Lactic acidosis 3. NSTEMI 4. Hyperkalemia 5. Hyperphosphatemia 6. History of end-stage renal disease on dialysis 7. Hypotension 8. GI bleed 9. Blood loss anemia Lab Data Labs: Laboratory Results - last 24 hr 07/23/21 07/23/21 07/23/21 09:35 09:38 09:38 WBC 10.6 RBC 3.13 L Hgb 9.6 L Hct 31.5 L MCV 100.6 H MCH 30.7 MCHC 30.5 L RDW Std Deviation 63.3 H RDW Coeff of Joan 17.7 H Plt Count 282 MPV 11.3 Immature Gran % (Auto) 1.000 H Neut % (Auto) 82.7 H Lymph % (Auto) 11.3 L [place] % (Auto) 4.6 Eos % (Auto) 0.1 Baso % (Auto) 0.3 Absolute Neuts (auto) 8.8 H Absolute Lymphs (auto) 1.20 Nucleated RBC % 0.3 PT INR Sodium 134 L Potassium 7.0 H* Chloride 93 L Carbon Dioxide 23.0 Anion Gap 18 H BUN 76 H Creatinine 8.42 H* Estim Creat Clear Calc 4.56 Est GFR (MDRD) Af Amer 6 L Est GFR (MDRD) Non-Af 5 L BUN/Creatinine Ratio 9.0 L Glucose 191 H Lactic Acid Calcium 9.7 Phosphorus Magnesium Total Bilirubin Direct Bilirubin AST ALT Alkaline Phosphatase Troponin I High Sens 306 H* B-Natriuretic Peptide 2823.0 H Total Protein Albumin Globulin Blood Type Antibody Screen Antibody Identification Antigen Identification Crossmatch 07/23/21 07/23/21 07/23/21 10:10 10:10 11:00 WBC RBC Hgb Hct MCV MCH MCHC RDW Std Deviation RDW Coeff of Joan Plt Count MPV Immature Gran % (Auto) Neut % (Auto) Lymph % (Auto) [place] % (Auto) Eos % (Auto) Baso % (Auto) Absolute Neuts (auto) Absolute Lymphs (auto) Nucleated RBC % PT Cancelled INR Cancelled Sodium Potassium Chloride Carbon Dioxide Anion Gap BUN Creatinine Estim Creat Clear Calc Est GFR (MDRD) Af Amer Est GFR (MDRD) Non-Af BUN/Creatinine Ratio Glucose Lactic Acid Calcium Phosphorus Magnesium Total Bilirubin Direct Bilirubin AST ALT Alkaline Phosphatase Troponin I High Sens B-Natriuretic Peptide Total Protein Albumin Globulin Blood Type O POSITIVE Antibody Screen POSITIVE H Antibody Identification ANTI-K Antigen Identification K ANTIGEN - NEGATIVE Crossmatch See Detail 07/23/21 07/23/21 07/23/21 11:00 12:10 12:30 WBC RBC Hgb Hct MCV MCH MCHC RDW Std Deviation RDW Coeff of Joan Plt Count MPV Immature Gran % (Auto) Neut % (Auto) Lymph % (Auto) [place] % (Auto) Eos % (Auto) Baso % (Auto) Absolute Neuts (auto) Absolute Lymphs (auto) Nucleated RBC % PT 25.5 H INR 2.4 Sodium Potassium Chloride Carbon Dioxide Anion Gap BUN Creatinine Estim Creat Clear Calc Est GFR (MDRD) Af Amer Est GFR (MDRD) Non-Af BUN/Creatinine Ratio Glucose Lactic Acid 8.5 H* Calcium Phosphorus Magnesium 2.7 H Total Bilirubin 1.50 H Direct Bilirubin 0.73 H AST 617 H ALT 575 H Alkaline Phosphatase 91 Troponin I High Sens 294 H* B-Natriuretic Peptide Total Protein 6.8 Albumin 2.5 L Globulin 4.3 H Blood Type Antibody Screen Antibody Identification Antigen Identification Crossmatch 07/23/21 12:40 WBC RBC Hgb Hct MCV MCH MCHC RDW Std Deviation RDW Coeff of Joan Plt Count MPV Immature Gran % (Auto) Neut % (Auto) Lymph % (Auto) [place] % (Auto) Eos % (Auto) Baso % (Auto) Absolute Neuts (auto) Absolute Lymphs (auto) Nucleated RBC % PT INR Sodium Potassium Chloride Carbon Dioxide Anion Gap BUN Creatinine Estim Creat Clear Calc Est GFR (MDRD) Af Amer Est GFR (MDRD) Non-Af BUN/Creatinine Ratio Glucose Lactic Acid Calcium Phosphorus 11.9 H* Magnesium Total Bilirubin Direct Bilirubin AST ALT Alkaline Phosphatase Troponin I High Sens B-Natriuretic Peptide Total Protein Albumin Globulin Blood Type Antibody Screen Antibody Identification Antigen Identification Crossmatch Radiography Diagnostic Testing: Clinical Impression(s) from Imaging Studies Chest X-Ray 07/23/21 10:18 IMPRESSION: Increased markings at the lung bases worse on the right side suggestive of bibasilar atelectasis. Electronically Signed: Ayo Oliver MD at 11:10 EDT , Chest/Abdomen/Pelvis CT 07/23/21 10:33 IMPRESSION: Multiple small gallstones. Small right pleural effusion with bibasilar atelectasis worse on the right side. Thickening of the left major fissure. Electronically Signed: Ayo Oliver MD at 12:39 EDT , Critical Care Time Critical Care Time: Yes Critical care time (excluding procedures): 75-104 minutes (79), Discussing w/Patient &/or Family/Cement Railroad Car Loader, Discussing w/Consultants, Arranging Admission or Transfer and Performing Direct Patient Care at Bedside Discharge Plan Triage Chief Complaint: Fall ED Provider: Abhijeet Siddiqui Dx/Rx/DC Orders Prescriptions: No Action lisinopril 40 mg tablet 20 mg PO .COMPLEX RF: 0 apixaban 5 mg tablet 5 mg PO BID Qty: 1 RF: 0 aspirin [Adult Low Dose Aspirin] 81 mg tablet,delayed release (DR/EC) 81 mg PO DAILY RF: 0 atorvastatin 40 mg tablet 40 mg PO DAILY Qty: 1 RF: 0 carvedilol 12.5 mg tablet 12.5 mg PO .COMPLEX Qty: 1 RF: 0 citalopram 20 mg tablet 30 mg PO DAILY RF: 0 ergocalciferol (vitamin D2) 1,250 mcg (50,000 unit) capsule 1,250 mcg PO QWEEK Qty: 1 RF: 0 loperamide [Imodium A-D] 2 mg tablet 2 mg PO Q6H PRN (Reason: Diarrhea) RF: 0 sevelamer carbonate [Renvela] 800 mg tablet 3,200 mg PO TID RF: 0 trazodone 50 mg tablet 50 mg PO QHS PRN (Reason: Sleep) RF: 0 Triphrocaps 1 mg capsule 1 cap PO DAILY RF: 0 acetaminophen [Tylenol] 325 mg tablet 650 mg PO Q4H PRN (Reason: Pain) RF: 0 Primary Care Provider: Ilya Padilla
[2021-07-23] MEDS: proMETHazine 25 MG/ML Syringe 12.5 MG IM (11:26)
--- NOTE | 2021-07-23 11:33 | NURSING ---
COAGS HEMOLIZED. LAB AWARE THEY NEED TO COME DRAW
[2021-07-23 11:45] LABS: Reflex Troponin-HS? (from REC) Y
[2021-07-23 11:55] LABS: Lactic Acid 8.5 mmol/L (0.4-1.9)
[2021-07-23 12:32] LABS: International Normalized Ratio 2.4; Prothrombin Time (Protime)PT. 25.5 SECONDS (11.7-14.9)
--- NOTE | 2021-07-23 13:00 | ED.RN ---
Dr Flowers and Dr Siddiqui at bedside talking to pt's daughter and pt's sister regarding plan of care. Pt's daughter is requesting pt be transferred to [facility].
[2021-07-23 13:12] LABS: AST(SGOT) 617 U/L (15-37); Alanine Aminotransfer ALT/SGPT 575 U/L (13-56); Albumin, Serum 2.5 g/dL (3.2-5.0); Alkaline Phosphatase 91 U/L (45-117); Bilirubin, Direct 0.73 mg/dL (0.00-0.30); Globulin 4.3 g/dL (2.2-4.2); Magnesium 2.7 mg/dL (1.6-2.6); Protein, Total 6.8 g/dL (6.4-8.2); Troponin-I HS 294 pg/mL (3.0-54.0)
[2021-07-23 13:14] LABS: Phosphorus 11.9 mg/dL (2.5-4.9)
[2021-07-23] MEDS: fentaNYL 100 MCG/2 ML Ampul 25 MCG IV (14:09)
[2021-07-23 15:20] LABS: Reflex Lactate? Y
--- NOTE | 2021-07-23 15:49 | ED.RN ---
Awaiting hospice placement.
--- NOTE | 2021-07-23 15:52 | CHAPLAIN ---
Type of Pastoral Visit _x__ Initial Visit ___ Follow-up Visit ___ On-call Visit ___ General Patient Visit ___ Spiritual Assessment ___ Family Conference ___ Bereavement ___ Rapid Response ___ Code Blue ___ Other (describe below) Pastoral Care Referral From ___ Patient _x__ Family _x__ Nurse ___ Physician _x__ Stitcher Feeder ___ Electronics Warfare Technician ___ Other (describe below) Sacrament/Intervention _x__ Active listening ___ Anointing ___ Worship ___ Bereavement ___ Communion ___ Joan exploration ___ ___ Life review _x__ Prayer ___ Reconciliation ___ Sacrament of Sick __x_ Supportive presence ___ Wedding ___ Other (describe below) Pastoral Comments patient is in ED with a rapid decline in health; family has chosen hospice care at this time; SW and RN recommended and offered spiritual care support to patient and family; family accepted care and presence along with a prayer; pt is minimally alert but does agree to support; other family members continued to arrive; ongoing support available until hospice team takes over
--- NOTE | 2021-07-23 16:12 | CM.ED ---
CHRISTI Note Referral Source: MD Referral Reason: Hospice SW was advised by the MD that family is interested in talking to social worker clinical in regards to discussion about Hospice and Code Status. SW called [facility]. Spoke to nurse Kacey. No advanced directives on file. SW went to patient's room. Patient's daughter, Mony, said that patient was alert and oriented. SW introduced self and role. SW asked patient what her desires are currently and she said I don't know. SW asked if patient had questions and patient said I don't know. Patient's daughter, Mony was concerned that the DNR CC needs to be signed now. SW explained that in case of any medical issue happening in the future or anytime soon it is good to have the code status clarified. Patient's son signed the code status and then the patient's daughter signed the form. SW provided list of Hospice agencies. Patient's son said [facility]. Mony, daughter, said why did you pick that? and said that she would call her 70 year old Hospice friend for recommendation. Patient's son said to proceed with referral to [facility]. CHRISTI called [facility] and left voice mail to call this comic writer. (2:55pm) CHRISTI faxed referral to [facility] at 2:59 and 3:01pm. CHRISTI called [facility] and spoke to [place]. The referral is in process so she can not see the current status. 3:44pm CHRISTI spoke to Dr. Flowers and advised that this comic writer is waiting for call back from hospice and placement at [facility]. CHRISTI called [facility] again and was advised that the status is in the que for family to be called. 4:04pm CHRISTI was notified by family member, Mony, that the social worker clinical is to arrange doc to doc. SW asked family member to ask Hospice which MD is manager database administration and family mber advised . CHRISTI updated Dr. Siddiqui to call MD to MD with Dr. Davenport. CHRISTI asked Deanna, the legal administrative secretary, to call Hospice for Dr. Davenport. CHRISTI received call from Drea at [facility]. She asked if we could arrange transport and this comic writer was advised that [facility] transport is still in the emergency room area after bringing in another hospice patient. Christi asked Drea to contact their transport now to see if they could bring patient to the [facility]. Drea said that Dr. Davenport said that patient can come to the [facility] and has been accepted. 4:42pm SW called Drea and Drea said tht the transport team will bring patient to the ED. Drea said that they are decontaminating the vehicle now. Drea said that patient's RN needs to call report directly to the [facility] and provided this comic writer with the [facility] number. 4:55pm SW spoke to CAROLINA Santizo. CAROLINA Santizo said that she would update the family and then also call report to [facility]. SW updated that patient is going to [facility]. Plan: [facility]
--- NOTE | 2021-07-23 17:20 | ED.RN ---
Hospice Transport Unit here to transfer pt to Inpatient Hospice Unit. Notified nursing staff that pt was having agonal breathing and that they were unable to palpate a carotid pulse. This RN unable to auscultate breath sounds or heart beat. Dr Kaur notified, to room, unable to auscultate breath sounds or heart beat. Pronounced time of 1713. Daughter Mony present. Call made to pt's son Vinicius, no answer, message left to call this RN.
--- NOTE | 2021-07-23 17:22 | ED.RN ---
DR MELARA AND THIS NURSE PLUS AVERY Alejo RN AT THE BEDSIDE. DAUGHTER AT THE BEDSIDE. NO RESPIRATIONS OR PULSE NOTED. TIME OF [id number]
--- NOTE | 2021-07-23 17:35 | ED.RN ---
DR CLARK COVERING FOR DR POWELL NOTIFIED OF
--- NOTE | 2021-07-23 17:59 | ED.RN ---
PT RECEIVED APPROX 20ML OF FLUIDS IN THE LAST HOUR OF LIFE
== END ==
PROVIDERS: Internal Medicine; Emergency Provider Student in an Organized Health Care Education/Training Program; PCP Family Medicine; Visit Provider Student in an Organized Health Care Education/Training Program
DX: K72.00 Acute and subacute hepatic failure without coma (principal); Z99.2 Dependence on renal dialysis; J44.9 Chronic obstructive pulmonary disease, unspecified; E11.22 Type 2 diabetes mellitus with diabetic chronic kidney disease; N18.6 End stage renal disease; I48.0 Paroxysmal atrial fibrillation; I21.4 Non-ST elevation (NSTEMI) myocardial infarction; K92.2 Gastrointestinal hemorrhage, unspecified; E83.39 Other disorders of phosphorus metabolism; E87.5 Hyperkalemia; E87.2 Acidosis; D50.0 Iron deficiency anemia secondary to blood loss (chronic); J90 Pleural effusion, not elsewhere classified; I44.0 Atrioventricular block, first degree; I25.10 Atherosclerotic heart disease of native coronary artery without angina pectoris; I95.9 Hypotension, unspecified; E66.9 Obesity, unspecified; Z66 Do not resuscitate; Z95.5 Presence of coronary angioplasty implant and graft; Z79.899 Other long term (current) drug therapy; Z79.01 Long term (current) use of anticoagulants; Z79.82 Long term (current) use of aspirin
CPT/HCPCS: 36415; 71045; 71250; 74176; 80048; 80076; 82274; 83605; 83735; 83880; 84100; 84484; 85025; 85610; 86850; 86870; 86900; 86901; 86902; 86905; 86920; 86922; 87040; 93005; 94640; 96361; 96365; 96366; 96368; 96372; 96375; 99285; J7040; J7050; A4216; J0610; J1610